=== PATIENT | male | born 1965 | race African-American/Black ===

== ENCOUNTER 2017-08-08 00:47 | Emergency (ER) | payer MEDICARE ==
[~2017-08-08] VITALS: Ht 172.7 cm; Wt 91.0 kg
[2017-08-08] MEDS ORDERED: BACITRACIN ZINC OINT UDPKT TOP ONE (07:15)
[2017-08-08] MEDS ORDERED: TETANUS, DIPHTHERIA, PERTUSSIS VAC/PF 0.5ML (>7YR OLD) IM ONE (07:15)
[2017-08-08 07:30] VITALS: BP 120/76
== END 2017-08-08 08:29 | disposition home or self-care (01) ==
LOC: ER 00:47
DX: L02.213 Cutaneous abscess of chest wall (principal); R03.0 Elevated blood-pressure reading, without diagnosis of hypertension; Z23 Encounter for immunization
CPT/HCPCS: 90471; 90715; 99283